=== PATIENT | female | born 1975 | race Caucasian/White ===

== ENCOUNTER → 2020-08-03 | Outpatient (CLI) | payer BC ==
[~2020-08-03] MED LIST: REGADENOSON 0.4 MG/5 ML DISP.SYRIN. IV ONE
[2020-08-03 12:39] LABS: CHOLESTEROL/HDL RATIO 3.5
--- NOTE | 2020-08-03 14:37 | CARD ---
MR#: [id number] Date of Study: 08/03/2020 Ordering Physician: WINTER SMITH, Referring Physician: WINTER SMTIH, Tech: Lyn Wilkerson APPROVED REPORT EXAM: Two-dimensional and M-mode echocardiogram with Doppler and color Doppler. Other Information Quality : AverageHR: 57bpm INDICATION Cardiac Disease: CAD RISK FACTORS Hypertension Smoking Asthma 2D DIMENSIONS RVDd2.7 (2.9-3.5cm)Left Atrium(2D)3.2 (1.6-4.0cm) IVSd0.8 (0.7-1.1cm)Aortic Root(2D)2.6 (2.0-3.7cm) LVDd4.9 (3.9-5.9cm)LVOT Diameter2.0 (1.8-2.4cm) PWd0.9 (0.7-1.1cm)LVDs3.1 (2.5-4.0cm) FS (%) 35.4 %SV71.9 ml LVEF(%)64.7 (>50%) Aortic Valve AoV Peak Roman.132.7cm/sAoV VTI27.8cm AO Peak GR.7.0mmHgLVOT Peak Roman.78.5cm/s LVOT VTI 15.28cmAO Mean GR.4mmHg DONNIE (VMAX)1.07yy1NYN (VTI)1.67cm2 Mitral Valve MV E Llkzgrdr26.2cm/sMV DECEL NHXH746xi MV A Elzbocae46.9cm/sMV DRO00ui E/A Ratio1.3MVA (PHT)3.41cm2 TDI E/Lateral E'5.6E/Medial E'5.4 Pulmonary Valve PV Peak Azhjioql83.4cm/sPV Peak Grad.3mmHg Tricuspid Valve TR P. Dduvbymo834va/sRAP ESIAWCDU0ocIz TR Peak Gr.10ndCnYDCX43rjHc Pulmonary Vein S1 Yzijwote49.9cm/sD2 Vtfymwce21.0cm/s PVa [id number] LEFT VENTRICLE The left ventricle is normal size. There is normal left ventricular wall thickness. The left ventricu lar systolic function is normal and the ejection fraction is within normal range. The Ejection Fracti on is 55%. There is normal LV segmental wall motion. The left ventricular diastolic function and fill ing is normal for age. RIGHT VENTRICLE The right ventricle is normal size. There is normal right ventricular wall thickness. The right ventr icular systolic function is normal. ATRIA The left atrium size is normal. The right atrium size is normal. The interatrial septum is intact wit h no evidence for an atrial septal defect or patent foramen ovale as noted on 2-D or Doppler imaging. AORTIC VALVE The aortic valve is normal in structure and function. Doppler and Color Flow revealed no significant aortic regurgitation. There is no significant aortic valvular stenosis. Calculated aortic valve area is 1.76 cm2 with maximum pressure gradient of 8 mmHg and mean pressure gradient of 5 mmHg. MITRAL VALVE The mitral valve is thickened but opens well. There is no evidence of mitral valve prolapse. There is no mitral valve stenosis. Doppler and Color-flow revealed trace mitral regurgitation. TRICUSPID VALVE The tricuspid valve is normal in structure and function. Doppler and Color Flow revealed trace tricus pid regurgitation with an estimated PAP of 22 mmHg. There is no tricuspid valve stenosis. PULMONIC VALVE The pulmonic valve is not well visualized. Doppler and Color Flow revealed trace pulmonic valvular re gurgitation. There is no pulmonic valvular stenosis. GREAT VESSELS The aortic root is normal in size. The ascending aorta is normal in size. The IVC is normal in size a nd collapses >50% with inspiration. PERICARDIAL EFFUSION There is no evidence of significant pericardial effusion. Critical Notification Critical Value: No <Conclusion> The left ventricular systolic function is normal and the ejection fraction is within normal range. Th e Ejection Fraction is 55%. There is normal LV segmental wall motion. Signed by : Jamie Hernandez, Electronically Approved : 08/03/2020 14:37:18
--- NOTE | 2020-08-03 17:38 | RAD ---
MR#: [id number] Date of Study: 08/03/2020 Ordering Physician: WINTER SMITH, Referring Physician: MONIQUE SMITH Tech: RT Lea (R) (N) APPROVED REPORT Test Type: Pharmacological Stress Nurse/Tech: Maureen Montero R.N. Test Indications: Coronary artery disease Cardiac History: ME, stent, family history Medications: See Electronic Medical Record Medical History: See Electronic Medical Record Resting ECG: NSR Resting Heart Rate: 61 bpm Resting Blood Pressure: 121/73mmHg Pretest Chest Pain: None Nurse/Tech Notes S1S2, lungs clear Consent: The procedure was explained to the patient in lay terms. Informed consent was witnessed. Rigoberto eout was entered into [employer]. History and Stress Test performed by Maureen Montero R.N. Pharm. Details Pharmacologic stress testing was performed using 0.4mg per 5ml of regadenoson given intravenously ove r 7-10 seconds. POST EXERCISE Reason for Termination: Infusion complete Max HR: 121 bpm Max Blood Pressure: 124/66mmHg INTERPRETATION Stress EKG Conclusion: No acute changes were noted. Imaging Protocol IMAGE PROTOCOL: Rest Tc-99m/stress Tc-99m 1 day Rest: Stress: Viability: Radiopharm.Tc99m EnyjlnrcuVy10a Sestamibi Ktml53nZv 32mCi Duration 15min. 10min. Img Date 08/03/2020 08/03/2020 Inj-Img Cnel28pjk. 60min. Rest Admin Site:IV - Right HandAdministrator:RT Lea (R)(N) Stress Admin Site: IV - Right HandAdministrator: KARI Chin, ARRT (R)(N) STRESS DATA End Diast. Vol.65.0mlAv. Heart Rate93.0bpm End Syst. Vol.19.0mlCO Index BSA0.0L/min Myocardial Bhnf306.0gEject. Hnghuzsz21.0% Stress Rates Pk. Fill Rate4.22EDV/secLVtime Pk. Fill 188.36msec Pk. Empty Rate5.19ESV/secLVtime Pk. Eject98.56msec 1/3 Pk. Fill1.16EDV/sec Stress Scores Regional WT3.00Summed WT11.00 Regional WM0.00Summed WM1.00 The rest and stress images show normal perfusion, normal contraction and thickening. LV Perf. Quant 17 Seg. SSS0.00 17 Seg. SRS2.00 17 Seg. SDS0.00 Stress Defect Extent (% LAD)0.00Rest Defect Extent (% LAD)5.00Rev. Defect Extent (% LAD)0.00 Stress Defect Extent (% LCX) 0.00Rest Defect Extent (% LCX)0.00Rev. Defect Extent (% LCX)0.00 Stress Defect Extent (% RCA)0.00Rest Defect Extent (% RCA)0.00Rev. Defect Extent (% RCA)0.00 Stress Defect Extent (% STEVE)0.00Rest Defect Extent (% STEVE)2.60Rev. Defect Extent (% STEVE)0.00 Other Information Quality:Good Risk Assessment: Low Risk Conclusion 1. No evidence of EKG changes with stress testing. 2. Normal perfusion at stress/rest. 3. Low risk study. 4. EF > 60%. Signed by : Jamie Hernandez, Electronically Approved : 08/03/2020 17:38:37
== END ==
LOC: MERGE 06-07 09:30 → NM 10:01
PROVIDERS: ATTEND Internal Medicine Cardiovascular Disease
DX: I25.10 Atherosclerotic heart disease of native coronary artery without angina pectoris (principal); I25.2 Old myocardial infarction; Z95.5 Presence of coronary angioplasty implant and graft
CPT/HCPCS: 36415; 78452; 80061; 93017; 93306; A9500; J2785

== ENCOUNTER 2021-08-09 10:20 | Emergency (ER) | payer BC ==
[~2021-08-09] VITALS: Ht 157.5 cm; Wt 84.6 kg
--- NOTE | 2021-08-09 11:10 | RAD ---
EXAM: Left wrist, 3 views. HISTORY: Pain. COMPARISON: None. FINDINGS: 3 views of the left wrist are obtained. There is a comminuted intra-articular fracture of t he distal radial metaphysis with dorsal inclination of the distal radial articular surface. There is a displaced ulnar styloid fracture. There is wrist soft tissue swelling. IMPRESSION: 1. Comminuted intra-articular fracture of the distal radial metaphysis. 2. Displaced ulnar styloid fracture. Electronically signed by: Amie Alvarez MD (08/09/2021 11:08 AM) [id number]
[2021-08-09] MEDS ORDERED: MORPHINE SULFATE 4 MG/ML INJ. IVP ONE ×2 (12:00→13:30)
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
[2021-08-09] MEDS ORDERED: HYDR-2761 PO (14:59)
[2021-08-09 15:15] VITALS: BP 131/76
[2021-08-16] MEDS ORDERED: HYDR-2761 PO (14:01)
== END 2021-08-09 16:06 | disposition home or self-care (01) ==
LOC: ER 10:20
DX: S52.572A Other intraarticular fracture of lower end of left radius, initial encounter for closed fracture (principal); S52.612A Displaced fracture of left ulna styloid process, initial encounter for closed fracture; F17.200 Nicotine dependence, unspecified, uncomplicated; F10.20 Alcohol dependence, uncomplicated; Z88.0 Allergy status to penicillin; Y90.9 Presence of alcohol in blood, level not specified; Y08.89XA Assault by other specified means, initial encounter; Y93.89 Activity, other specified; Y92.89 Other specified places as the place of occurrence of the external cause; Y99.8 Other external cause status
CPT/HCPCS: 29240; 73120; 96374; 96376; 99285; J2270; 96375

== ENCOUNTER 2021-08-16 12:09 | Day surgery (SDC) | payer BC ==
[~2021-08-16] VITALS: Ht 157.5 cm; Wt 84.0 kg
[~2021-08-16 12:09] MED LIST changes: +CLINDAMYCIN 900MG PREMIX 50 ML IV PRN; +DEXAMETHASONE SOD PHOS 4 MG/ML VIAL ONE; +HYDR-2761 PO; +HYDROmorphone 2 MG/ML VIAL IVP PRN; +IV RINGERS,LACTATED 1000ML 1,000 ML IV SCH; +KETOROLAC 30 MG/ML VIAL. ONE; +LIDOCAINE 1% PF 5 ML VIAL. ONE; +ONDANSETRON PF 4 MG/2 ML VIAL. ONE; +PROCHLORPERAZINE 10 MG/2 ML VIAL. IVP PRN; +PROPOFOL 10 MG/ML (20ML) VIAL. IV ONE; -REGADENOSON 0.4 MG/5 ML DISP.SYRIN. IV ONE; +fentaNYL PF VIAL 100 MCG/2 ML VIAL IVP PRN
[2021-08-16 12:36] VITALS: BP 157/80
[2021-08-16] MEDS ORDERED: MIDAZOLAM HCL/PF 2 MG/2 ML VIAL. ONE (13:20)
[2021-08-16] MEDS ORDERED: fentaNYL PF VIAL 100 MCG/2 ML VIAL ONE ×2 (13:20→15:38)
[2021-08-16] MEDS ORDERED: BUPIVACAINE-EPI 0.25%-1:200000 MPF 30 ML VIAL. INJ ONE (13:30)
[2021-08-16] MEDS ORDERED: ROPIVacaine 0.5% PF 20 ML VIAL. ONE (13:49)
[2021-08-16] MEDS ORDERED: HYDR-2761 PO (14:01)
--- NOTE | 2021-08-16 14:05 | DISCH ---
DISCHARGE INSTRUCTIONS Condition on Discharge Condition on Discharge: Stable Activity After Discharge Activity Instructions for Disc: Activity as tolerated, Avoid exertion Bathing Instructions: Shower-keep dressing dry Driving Instructions after Dis: Do not drive today Weight Bearing Status after Di: Non weight bearing Wound Incision Care Wound/Incision Care: Ice to area for comfort, Keep wound elevated, Do not change dressing Follow-Up Follow up with: 10 to 14 days THAO ROMANO Jr. DO Aug 16, 2021 14:04
[2021-08-16] MEDS ORDERED: 0.9 % SODIUM CHLORIDE 20 ML VIAL. IJ ONE (14:15)
[2021-08-16] MEDS ORDERED: SEVOFLURANE 31 TO 60 MINUTES. IH ONE (14:24)
--- NOTE | 2021-08-16 15:04 | PDOC4 ---
OPERATIVE NOTE Date: Date: Aug 16, 2021 Pre-Op Diagnosis: Comminuted intra-articular fracture displaced left radius Post-Op Diagnosis: Same Procedure Performed: ORIF left distal radius Surgeon: Brittani Anesthesia Type: General Blood Loss: 20 cc Specimans Obtained: None Findings: See dictation Complications: None THAO ROMANO Jr. DO Aug 16, 2021 15:04
[2021-08-16] MEDS ORDERED: HYDROcodone/APAP 5/325MG 1 TAB TABLET PO ONE (15:15)
[2021-08-16] MEDS: fentaNYL PF VIAL 100 MCG/2 ML VIAL IVP PRN ×2 (15:41→15:51)
[2021-08-16] MEDS ORDERED: MORPHINE SULFATE 2 MG/ML INJ. ONE (15:52)
[2021-08-16] MEDS: MORPHINE SULFATE 2 MG/ML INJ. IVP PRN ×2 (15:53→16:02)
[2021-08-16 16:15] VITALS: BP 135/86
--- NOTE | 2021-08-16 16:36 | OP ---
DATE OF SURGERY: 08/16/2021 PREOPERATIVE DIAGNOSIS: Displaced comminuted intraarticular fracture, left distal radius. POSTOPERATIVE DIAGNOSIS: Displaced comminuted intraarticular fracture, left distal radius. PROCEDURE: Open reduction and internal fixation, left distal radius. SURGEON: Harley Peter Jr, DO. ANESTHESIA: General. COMPLICATIONS: None. ESTIMATED BLOOD LOSS: 20 mL. DESCRIPTION OF PROCEDURE: The patient was taken to the operative suite, given a general anesthetic. Left upper extremity was then prepped and draped in a sterile fashion. Incision was made through skin and subcutaneous tissues obliquely across the radial crease proximally along the area of the flexor carpi radialis. This was then carefully taken down to identify the interval of the flexor carpi radialis and the flexor pollicis longus. This was carefully by digital dissection taken down. Neurovascular structures were protected and identified. There was injury, which is significant to the pronator quadratus. This was removed from the area further. An open reduction was undertaken of the distal radial fragments. This was noted to be satisfactory in both AP and lateral projections. Therefore, the plate was placed in appropriate position and affixed using standard AO technique. All proximal screws that were used, which were 3 in number were nonlocking screws. All the distal screws, which are in the distal fragment to fixate these fragments were locking screws and held appropriately with good bony structure. This was noted to be satisfactory, again reduced in both AP and lateral projections, therefore, this was thoroughly irrigated. Superficial tissues and the skin was reapproximated. Sterile dressing was applied along with a sugar tong splint. The patient was then taken from the operative bed to the postoperative bed, taken to PACU in stable condition. MARCIA MARCIAL: Jason TID: [id number]
== END 2021-08-16 16:50 | disposition home or self-care (01) ==
LOC: SURG 12:09
PROVIDERS: ATTEND Orthopaedic Surgery
DX: S52.572A Other intraarticular fracture of lower end of left radius, initial encounter for closed fracture (principal); F17.210 Nicotine dependence, cigarettes, uncomplicated; Z90.49 Acquired absence of other specified parts of digestive tract; Z98.890 Other specified postprocedural states; Z79.899 Other long term (current) drug therapy; Z88.0 Allergy status to penicillin; Z88.1 Allergy status to other antibiotic agents; Z88.2 Allergy status to sulfonamides; Z72.89 Other problems related to lifestyle; X58.XXXA Exposure to other specified factors, initial encounter; Y93.89 Activity, other specified; Y92.89 Other specified places as the place of occurrence of the external cause; Y99.8 Other external cause status
CPT/HCPCS: 25609; A4565; A4930; A6402; A6449; C1713; J1100; J1885; J2250; J2270; J2405; J2704; J2795; J3010; J3490; 76000